=== PATIENT | female | born 1960 | race Caucasian/White ===

== ENCOUNTER 2019-10-16 04:34 | Outpatient (CLI) | payer OTHER, SELFPAY ==
[2019-10-16 07:39] LABS: Absolute Basophil Count 0.01 k/cumm (0.0-0.2); Absolute Eosinophil Count 0.14 k/cumm (0.0-0.7); Absolute Neutrophil Count 1.32 k/cumm (1.2-6.7); Basophils % 0.4; Eosinophils % 5.4; HCT 39.3 % (36.0-46.0); Lymphocytes % 31.1; Mean Corp. HGB Concentration 33.1 g/dL (32.0-36.0); Mean Corpuscular Hemoglobin 32.6 pg (27.0-33.0); Mean Corpuscular Volume 98.5 fL (80-95); Mean Platelet Volume 9.6 fL (8.0-11.0); Monocytes % 11.7; Neutrophils % 51.4; Platelet Count 169 x1000/uL (130-400); RBC 3.99 m/cumm (4.00-5.20); RBC Distribution Width 13.5 % (11.7-14.6); White Blood Cell Count 2.57 k/cumm (4.4-10.8)
[2019-10-16 08:48] LABS: ALT 26 U/L (14-59); AST 37 U/L (15-37); Alkaline Phosphatase 432 U/L (46-116); Anion Gap 8.2 mmol/L (3-11); BUN 13 mg/dL (7-18); Bilirubin, Total 0.5 mg/dL (0.2-1.0); CO2 28.8 mmol/L (21.0-32.0); CREATININE 0.84 mg/dL (0.55-1.02); Calcium 9.1 mg/dL (8.5-10.1); Chloride 102 mmol/L (98-107); Glucose 94 mg/dL (74-106); Potassium 4.4 mmol/L (3.5-5.1); Sodium 139 mmol/L (136-145); Total Protein 7.8 g/dL (6.4-8.2)
[2019-10-17 12:00] LABS: CEA 477.5 ng/mL (See Note)
== END 2019-10-16 04:54 ==
PROVIDERS: PCP Nurse Practitioner Adult Health; Visit Provider Internal Medicine Hematology & Oncology
DX: C20 Malignant neoplasm of rectum (principal)
CPT/HCPCS: 36415; 80053; 81003; 82378; 85025

== ENCOUNTER 2019-10-30 10:04 | Outpatient (REF) | payer OTHER, SELFPAY ==
[2019-10-30 19:53] LABS: ALT 28 U/L (14-59); AST 33 U/L (15-37); Alkaline Phosphatase 467 U/L (46-116); Anion Gap 8.2 mmol/L (3-11); BUN 7 mg/dL (7-18); Bilirubin, Total 0.5 mg/dL (0.2-1.0); CO2 29.8 mmol/L (21.0-32.0); CREATININE 0.71 mg/dL (0.55-1.02); Calcium 8.9 mg/dL (8.5-10.1); Chloride 102 mmol/L (98-107); Glucose 106 mg/dL (74-106); Potassium 4.8 mmol/L (3.5-5.1); Sodium 140 mmol/L (136-145); Total Protein 7.1 g/dL (6.4-8.2)
[2019-10-30 19:59] LABS: HCT 38.6 % (36.0-46.0); HGB 12.5 g/dL (12.0-15.5); Mean Corp. HGB Concentration 32.4 g/dL (32.0-36.0); Mean Corpuscular Hemoglobin 32.1 pg (27.0-33.0); Mean Corpuscular Volume 99.2 fL (80-95); Platelet Count 130 x1000/uL (130-400); RBC 3.89 m/cumm (4.00-5.20); RBC Distribution Width 14.4 % (11.7-14.6)
[2019-10-30 20:41] LABS: Bilirubin Negative (Negative); Blood Trace-lysed (Negative); Clarity Clear (Clear); Glucose Negative (Negative); Ketones Negative (Negative); Leukocyte Esterase Trace (Negative); Nitrite Negative (Negative); Urobilinogen 0.2 EU/dL (Up TO 0.2)
[2019-10-30 20:50] LABS: Bacteria Negative HPF (Negative); C & S Indicated? Yes; Casts Negative LPF (Negative); Crystals Negative HPF (Negative); Epithelial Cells Rare HPF (Negative); Mucus Negative (Negative); Other Cells Negative (Negative); RBC 0-2 HPF (0-2); WBC Negative HPF (0-5)
[2019-10-31 10:37] LABS: Absolute Basophil Count 0.03 k/cumm (0.0-0.2); Absolute Eosinophil Count 0.08 k/cumm (0.0-0.7); Absolute Lymphocyte Count 0.75 k/cumm (1.2-3.4); Absolute Monocyte Count 0.39 k/cumm (0.11-0.7); Absolute Neutrophil Count 1.35 k/cumm (1.2-6.7); Atypical Lymphocytes % 2
[2019-10-31 10:38] LABS: Diff Comment Manual Differential; RBC Morphology Normal
[2019-11-01 20:26] LABS: CEA 276.1 ng/mL (See Note)
== END 2019-10-30 10:24 ==
LOC: NCHCN 10:04
PROVIDERS: PCP Nurse Practitioner Adult Health; Visit Provider Family Medicine
DX: C20 Malignant neoplasm of rectum (principal); R82.998 Other abnormal findings in urine
CPT/HCPCS: 80053; 85027; 81003; 81015; 82378; 85007; 87086

== ENCOUNTER 2019-11-27 14:36 | Emergency (ER) | payer MEDICAID, OTHER, SELFPAY ==
[2019-11-27 14:49] VITALS: BP 117/75; PULSE 68; RESP 16; TEMP 36.4; O2SAT 99
[2019-11-27 15:02] VITALS: RESP 16
--- NOTE | 2019-11-27 15:15 | ED.GENADUL_ITS ---
Discharge Plan Disposition Patient Disposition: HOME Condition: Stable Discharge Details Chief Complaint: GenMedical Clinical Impression: Metastatic cancer to bone Primary Care Provider: Alisha Nur ED Provider: Lauri Lin Home Meds and New Rx's Prescriptions: Continued eszopiclone [Lunesta] 2 MG tablet 2 mg PO HS Qty: 90 RF: 1 oxycodone 10 mg Tablet 10 mg PO PRNRF: 0 oxycodone [OxyContin] 20 mg Tablet,Oral Only,Ext.Rel.12 Hr 20 mg PO .QHS RF: 0 dexamethasone 2 mg Tablet 1 mg PO BID RF: 0 Discharge Instructions Additional Instructions: Please follow-up with Dr. Mckeon on Tuesday as planned. As per our discussion, I have placed a referral for hospice consultation. Return if you develop weakness of the legs, numbness of the legs, incontinence of urine, worsening pain, or any other acute concerns. May continue your previously prescribed oxycodone and OxyContin. You may also take Tylenol 650 mg twice a day as needed. Please remove the Lidoderm patch in 12 hours time. Additional Lidoderm patches are available at the local pharmacy [id number]. Medical Decision Making 58-year-old female with recurrence and metastases of rectal cancer for which he is undergoing chemotherapy. She was referred by Dr. Mckeon of the cancer center 4 days of progressive low back pain that radiates to both hips. She is known to have an L1 metastatic lesion. Most recent imaging was MRI in October. She arrives with unremarkable vital signs, normal motor and sensory function of the legs. Concern for progressive disease particularly of the axial spine. The patient had IV access established, was given parenteral analgesia as well as topical analgesia with a Lidoderm patch. Laboratories reveal a white count of 12, hematocrit 37, platelets 171. Sodium 136, potassium 4.2, chloride 102, bicarb 25, BUN 24, creatinine 0.8. CT scan revealed innumerable pulmonary metastases. There is a metastatic focus on the left side of the L1 vertebral body extending into the left pedicle. Lesion measures 1.8 x 1.4 cm. There are innumerable low-attenuation lesions within the liver. There is a metastatic focus within the left adrenal grand. The images were uploaded to the [facility] servers by radiology. Following a single dose of hydromorphone and the application of a Lidoderm patch, the patient's pain significantly improved. She does not have motor or sensory dysfunction. Given the location of the L1 focus in the patient's description and radiation of the pain to the hips, I do feel this is the causative etiology. I discussed the findings with on-call oncology at [facility], Dr Duvall, who stated she would pass the information on to Dr. Mckeon, who the patient is scheduled to see on Tuesday in clinic. We discussed referral to neurosurgery. Patient states to me she would like to defer & declined this. She states she would like a hospice consult which I will arrange. She understands to seek immediate help should she have the development of the leg weakness, numbness, changes to urine continence. She will continue her previously prescribed analgesics. She is ambulatory and improved at this time. Cc: Dr. Mckeon, [facility] Mode of arrival: ambulatory . Date/Time Provider Initiated Documentation: 11/27/19 14:38 . Limitations to Documentation: no limitations . Information obtained by: patient . History of Present Illness 58 year old F presents to the emergency department with the chief complaint of Low back pain, metastatic cancer, described as moderate, Quality is described as dull and constant, and is localized to the back. Patient extremity. Patient started experiencing this day(s) and it has been constant. Movement improves symptom(s), Rest worsens symptoms . Patient notes other (No incontinence); denies weakness. Patient did receive the following treatments prior to arrival, other (Oxycodone, OxyContin at night) Related Data Home Medications Medication Instructions Recorded Confirmed eszopiclone [Lunesta] 2 mg PO HS #90 tab 03/28/14 11/27/19 dexamethasone 1 mg PO BID 11/27/19 11/27/19 oxycodone 10 mg PO PRN 11/27/19 oxycodone [OxyContin] 20 mg PO .QHS 11/27/19 11/27/19 Allergies Allergy/AdvReac Type Severity Reaction Status Date / Time No Known Allergies Allergy Unverified 11/27/19 14:53 General Stated Complaint: GenMedical NORY: 3 Review of Systems Narrative: Currently undergoing chemotherapy. No fever or known sick contacts. No incontinence. Complains of flatulence today. 6 systems reviewed and otherwise negative [facility] Medical History Anxiety disorder CTS (carpal tunnel syndrome) Hyperlipidemia Hypothyroid Insomnia Tobacco dependence Social History Smoking/Tobacco Use Status: Former Tobacco Use Alcohol Intake: never Substance use type: does not use Exam Narrative Exam Narrative: GEN: awake, alert, oriented 3. Pleasant, well groomed, interactive. HEAD: Normocephalic, atraumatic ENT: Mucous membranes moist, oropharynx unremarkable, External ear exam unremarkable EYES: PERRL, EOMI NECK: Full ROM, no RASHMI, no menigismus CHEST/RESP: Nontender, clear to auscultation bilateral, no wheeze/rhonchi/rales CARDIOVASCULAR: RRR, no murmur, rub alec. 2+ Rad pulse bilateral ABDOMEN: Soft, nontender, no mass. +Bowel sounds Back: Tender in the lumbar spine to palpation without step-off or deformity. EXT: Full ROM, no edema, no rash. Motor is 5 out of 5, sensation intact throughout including saddle distribution. Neuro: Grossly normal neurologic exam, conversant, interactive. Psych: Speech fluent, thoughts congruent, affect normal Course Vital Signs Vital signs: Vital Signs Temperature 36.4 C L 11/27/19 14:49 Pulse 68 11/27/19 14:49 Respiratory Rate 16 11/27/19 14:49 Blood Pressure 117/75 11/27/19 14:49 Pulse Oximetry 99 11/27/19 14:49 Temperature 36.4 C L 11/27/19 14:49 Temperature Source Skin 11/27/19 14:49 Pulse 68 11/27/19 14:49 Respiratory Rate 16 11/27/19 15:02 Respiratory Effort Non-Labored 11/27/19 15:02 Respiratory Depth Normal 11/27/19 15:02 Respiratory Pattern Normal 11/27/19 15:02 Blood Pressure 117/75 11/27/19 14:49 Blood Pressure Position Sitting 11/27/19 14:49 Pulse Oximetry 99 11/27/19 14:49 Oxygen Delivery Method Room Air 11/27/19 14:49 Oxygen Flow Rate 0 11/27/19 14:49 Pain Level 10 11/27/19 14:49
--- NOTE | 2019-11-27 15:15 | DI.CT_ITS ---
EXAM: CT CHEST/ABD/PEL W CLINICAL HISTORY: Metastatic cancer, L1 lesion, low back pain COMPARISON: CT CT CHEST ABDOMEN PELVIS W CONTRAST (GENERIC) from 11/09/2019 FINDINGS: CT examination of the chest, abdomen, and pelvis was performed utilizing biphasic hepatic imaging fol lowing intravenous infusion of 100 cc of Omnipaque 350. Examination is compared with most recent rohith or CT from [facility] of November 08. Note is again made of numerous intrapulmonary metastases bilaterally, largest in the right lower lobe measuring about 14 millimeters in greatest diameter, findings are grossly unchanged from prior study . No new mass or consolidation. No pleural effusion or pneumothorax. Mild pretracheal and left AP window adenopathy, grossly unchanged. No evidence of pulmonary embolic disease. No significant abnormality of the thoracic aorta or major branches. Right Port-A-Cath in position, tip of which lies in the SVC. No bony lesion of the thorax identified. Innumerable hepatic metastatic lesions again noted, grossly unchanged from prior study. Spleen is un remarkable. Left adrenal metastatic lesion again noted, this measures about 4 cm in diameter as comp ared to 3 cm on prior study, question necrosis of the lesion. Small nodular lesion right adrenal als o slightly more prominent than prior study. Incidental left renal cyst noted. Otherwise kidneys are unremarkable. No urinary tract calcificatio n or obstruction. No focal bowel pathology. Abdominal aorta and major branches appear intact. Prior rectal surgery noted, reported history of rectal carcinoma. Left upper quadrant nodule, presumed peritoneal metastasis, unchanged at about 18 millimeters. Right iliacus muscle lesion, grossly unchanged. Left L1 vertebral body/pedicle lesion, unchanged. IMPRESSION: Widespread metastatic disease as described above involving lungs, liver, peritoneum, adrenals, right iliacus muscle, L1 vertebral body/pedicle. The findings are unchanged except for increased size of l eft adrenal metastasis, increasing in size from about 3 cm to 4 cm over a two to three-week period. This may represent necrosis. Rapid interval growth is the alternative explanation.
[2019-11-27 15:36] LABS: Abs Immature Grans 0.09 k/cumm (0.0-0.09); Absolute Basophil Count 0.01 k/cumm (0.0-0.2); Absolute Eosinophil Count 0.06 k/cumm (0.0-0.7); Absolute Lymphocyte Count 1.08 k/cumm (1.2-3.4); Absolute Monocyte Count 0.58 k/cumm (0.11-0.7); Absolute Neutrophil Count 10.73 k/cumm (1.2-6.7); Basophils % 0.1; Eosinophils % 0.5; HCT 37.1 % (36.0-46.0); HGB 12.1 g/dL (12.0-15.5); Immature Grans % 0.7 %; Lymphocytes % 8.6; Mean Corp. HGB Concentration 32.6 g/dL (32.0-36.0); Mean Corpuscular Hemoglobin 32.9 pg (27.0-33.0); Mean Corpuscular Volume 100.8 fL (80-95); Mean Platelet Volume 10.3 fL (8.0-11.0); Monocytes % 4.6; Neutrophils % 85.5; Platelet Count 171 x1000/uL (130-400); RBC 3.68 m/cumm (4.00-5.20); RBC Distribution Width 16.4 % (11.7-14.6); White Blood Cell Count 12.55 k/cumm (4.4-10.8)
[2019-11-27 15:51] LABS: ALT 40 U/L (14-59); AST 51 U/L (15-37); Albumin 2.9 g/dL (3.4-5.0); Alkaline Phosphatase 377 U/L (46-116); Anion Gap 8.9 mmol/L (3-11); BUN 24 mg/dL (7-18); Bilirubin, Total 0.3 mg/dL (0.2-1.0); CO2 25.1 mmol/L (21.0-32.0); CREATININE 0.88 mg/dL (0.55-1.02); Calcium 8.9 mg/dL (8.5-10.1); Chloride 102 mmol/L (98-107); Glucose 120 mg/dL (74-106); Potassium 4.2 mmol/L (3.5-5.1); Sodium 136 mmol/L (136-145); Total Protein 7.4 g/dL (6.4-8.2)
[2019-11-27] MEDS: Omnipaque 350 MG/ML 100 ML BTL IV (16:04)
[2019-11-27] MEDS: HYDROmorphone 2 MG/ML VIAL 1 MG IVP (16:19)
[2019-11-27 16:25] VITALS: BP 131/63; PULSE 63; RESP 18; TEMP 36.7; O2SAT 98
--- NOTE | 2019-11-27 17:01 | DI.VRAD_ITS ---
PROCEDURE INFORMATION: Exam: CT Chest With Contrast Exam date and time: 11/27/2019 3:20 PM Age: 58 years old Clinical indication: Other: L1 pain; Patient HX: Metastatic cancer, l1 lesion low back pain. Primary cancer was rectal cancer 4 years ago. Patients last chemo round was 3 weeks ago. ; Additional info: Entered er for back pain. Multiphasic staging exam was obtained per radiologist. Arterial chest and liver, and venous liver and pelvis was obtained. TECHNIQUE: Imaging protocol: Computed tomography of the chest with intravenous contrast. Radiation optimization: All CT scans at this facility use at least one of these dose optimization techniques: automated exposure control; mA and/or kV adjustment per patient size (includes targeted exams where dose is matched to clinical indication); or iterative reconstruction. COMPARISON: No relevant prior studies available. FINDINGS: Tubes, catheters and devices: There is a Port-A-Cath catheter on the right side with its tip in the SVC. Thyroid: The thyroid gland is within normal limits. Lungs: The tracheobronchial tree is patent bilaterally. There are multiple nodules throughout the lungs ranging in size from less than a cm to the largest of which is within the right lower lobe measuring up to 1.7 cm. These nodules are highly suspicious for metastatic disease. There are blebs within the apices. Pleural space: Unremarkable. No pneumothorax. No pleural effusion. Heart: The heart and pericardium are within normal limits. Aorta: There are slight arteriosclerotic changes of the aorta. Lymph nodes: There is right paratracheal adenopathy. There is AP window adenopathy. Bones/joints: There is a metastatic focus within the left side of the L1 vertebral body. This extends into the left pedicle. This causes impingement on the thecal sac. The lesion measures 1.8 x 1.4 cm. The There are degenerative changes of both shoulders. There are degenerative changes of the thoracic spine. Soft tissues: The patient is status post bilateral breast implants. IMPRESSION: Innumerable pulmonary metastases as above. Bony metastases involving the L1 vertebral body as above. Adenopathy as above. Further evaluation could be obtained with a PET-CT scan for restaging purposes. PROCEDURE INFORMATION: Exam: CT Abdomen And Pelvis With Contrast; Liver Exam date and time: 11/27/2019 3:20 PM Age: 58 years old Clinical indication: Other: L1 pain; Patient HX: Metastatic cancer, l1 lesion low back pain. Primary cancer was rectal cancer 4 years ago. Patients last chemo round was 3 weeks ago. ; Additional info: Entered er for back pain. Multiphasic staging exam was obtained per radiologist. Arterial chest and liver, and venous liver and pelvis was obtained. TECHNIQUE: Imaging protocol: Computed tomography of the abdomen and pelvis with intravenous contrast. Exam focused on the liver. Radiation optimization: All CT scans at this facility use at least one of these dose optimization techniques: automated exposure control; mA and/or kV adjustment per patient size (includes targeted exams where dose is matched to clinical indication); or iterative reconstruction. Contrast material: OMNIPAQUE 350; Contrast volume: 100 ml; Contrast route: IV; COMPARISON: No relevant prior studies available. FINDINGS: Liver: There are innumerable low-attenuation lesions within the liver which ranges in size from less than a cm to the largest of which is within the left lobe of the liver lateral segment measuring up to 5 cm. These lesions are highly suspicious for metastatic disease. Gallbladder and bile ducts: The gallbladder appears within normal limits. Pancreas: The pancreas is unremarkable. Spleen: The spleen is within normal limits. There is a small splenule. There are calcifications within the spleen which are suspicious for old granulomatous disease. Adrenals: There is a large metastatic focus within the left adrenal gland measuring 4.1 by 2.9 cm. The right adrenal gland is unremarkable. Kidneys and ureters: The right kidney is unremarkable. There is a small simple cyst within the midpole of the left kidney measuring up to 1.4 cm. Stomach and bowel: The patient is status post surgery at the level of the rectum. The anastomosis appears intact. There are feces within the colon which are suspicious for constipation. Intraperitoneal space: Unremarkable. No free air. No significant fluid collection. Lymph nodes: Unremarkable. No enlarged lymph nodes. Vasculature: There are arteriosclerotic changes of the aorta. Bladder: The urinary bladder is unremarkable. Reproductive: There is an IUD within the uterus. Bones/joints: There are degenerative changes of the lumbar spine. There is a metastatic focus within the right iliacus muscle at the level of the iliac crest. This measures approximately 2.7 by 2.7 cm. There is degenerative disc disease at L5-S1. There are degenerative changes of both hips. There is a lytic lesion within the left iliac bone measuring to 1.8 cm. Soft tissues: Unremarkable. IMPRESSION: 1. Metastatic disease as described above. Further evaluation could be obtained with a PET-CT scan for restaging purposes if clinically warranted. 2. Status post rectal surgery. The anastomosis is intact. 3. Osseous findings as above. Dictated and Authenticated by: Nathan Colmenares MD. Ordering:MAJOR Carreon MD
[2019-11-27 17:47] VITALS: BP 114/61; PULSE 55; RESP 16; TEMP 36.6; O2SAT 100
--- NOTE | 2019-11-27 18:13 | NUR.NOTE ---
Nursing Note: Referral copied and in care management inbox
--- NOTE | 2019-11-28 15:40 | PDOC.ERCMPRO ---
- If Service Date Differs Date of service: 11/28/19 Time of Service: 15:40 Care Management Progress Note At the request of ED provider, CM coordinates a referral to hospice.
== END 2019-11-27 18:14 | disposition home or self-care (01) ==
PROVIDERS: Emergency Provider Emergency Medicine; PCP Family Medicine
DX: C79.51 Secondary malignant neoplasm of bone (principal); M54.5 Low back pain; M25.551 Pain in right hip; M25.552 Pain in left hip; C20 Malignant neoplasm of rectum; Z79.899 Other long term (current) drug therapy
CPT/HCPCS: 36415; 74177; 80053; 96374; 99285; 71260; 83735; 85025; 99284; J3490

== ENCOUNTER 2019-12-14 02:53 | Outpatient (RCR) | payer MEDICAID, SELFPAY ==
[2019-11-30] MEDS: Normal Saline Flush 10 ML SYR 30 ML IVP (09:26)
[2019-11-30 09:27] LABS: Abs Immature Grans 0.08 k/cumm (0.0-0.09); Absolute Monocyte Count 0.29 k/cumm (0.11-0.7); Absolute Neutrophil Count 14.35 k/cumm (1.2-6.7); Basophils % 0.1; HCT 38.3 % (36.0-46.0); HGB 12.5 g/dL (12.0-15.5); Immature Grans % 0.5 %; Lymphocytes % 3.3; Mean Corp. HGB Concentration 32.6 g/dL (32.0-36.0); Mean Corpuscular Hemoglobin 33.1 pg (27.0-33.0); Mean Corpuscular Volume 101.3 fL (80-95); Mean Platelet Volume 10.7 fL (8.0-11.0); Monocytes % 1.9; Neutrophils % 94.2; Platelet Count 247 x1000/uL (130-400); RBC 3.78 m/cumm (4.00-5.20); RBC Distribution Width 17.1 % (11.7-14.6); White Blood Cell Count 15.23 k/cumm (4.4-10.8)
[2019-11-30 09:28] LABS: Absolute Basophil Count 0.02 k/cumm (0.0-0.2)
[2019-11-30 09:44] LABS: ALT 44 U/L (14-59); AST 37 U/L (15-37); Alkaline Phosphatase 340 U/L (46-116); Anion Gap 7.6 mmol/L (3-11); BUN 20 mg/dL (7-18); Bilirubin, Total 0.4 mg/dL (0.2-1.0); CO2 27.4 mmol/L (21.0-32.0); CREATININE 0.71 mg/dL (0.55-1.02); Calcium 8.9 mg/dL (8.5-10.1); Chloride 100 mmol/L (98-107); Glucose 163 mg/dL (74-106); Potassium 4.1 mmol/L (3.5-5.1); Sodium 135 mmol/L (136-145); Total Protein 7.6 g/dL (6.4-8.2)
[2019-12-03 12:20] LABS: CEA 168.8 ng/mL (See Note)
== END 2019-12-16 23:59 | disposition home or self-care (01) ==
LOC: INF 02:53
PROVIDERS: PCP Family Medicine; Visit Provider Internal Medicine Hematology & Oncology
DX: C20 Malignant neoplasm of rectum (principal); Z45.2 Encounter for adjustment and management of vascular access device
CPT/HCPCS: 36591; 80053; 82378; 85025

== ENCOUNTER 2019-12-28 03:35 | Outpatient (CLI) | payer OTHER, MEDICAID, SELFPAY ==
--- NOTE | 2019-12-28 | DI.CT_ITS ---
EXAM: CT CHEST/ABD/PEL W CLINICAL HISTORY: COLON CA METASTASIZED TO LIVER,C18.9,C78.7,BASELINE CT PRIOR TO CHEMO TECHNIQUE: Imaging Protocol: Axial computed tomography images with coronal and sagittal reformatted images were created and reviewed CONTRAST MATERIAL: Intravenous: Omnipaque 350 Contrast volume:100 mL Oral: Yes COMPARISON: CT CT CHEST/ABD/PEL W from 11/27/2019 FINDINGS: CHEST: Tracheobronchial tree: Patent where visualized. Mediastinum and Yessi: No dominant adenopathy or fluid collection. Pulmonary parenchyma: No consolidation. Multiple pulmonary metastases. There has been interval incr ease in size of the largest metastasis in the right lower lobe. It now measures 2 cm compared with 1 .6 cm. A nodule in the lateral aspect of the right lower lobe currently measures 0.9 cm compared wit h 0.6 cm on the prior examination. No architectural distortion. Pleura: No effusion or pneumothorax. Heart: The heart is not dilated. Mild coronary artery calcification. No significant pericardial effu francisco. Aorta: Atherosclerosis. Pulmonary artery: No evidence of pulmonary embolus. Lymph nodes: Within normal limits. Bones:The right scapular lesion has enlarged compared to the prior examination. Soft tissues: Bilateral breast implants. Tubes, Catheters, and Lines: There is a right-sided Kcjvlm-[id number]-Dcgo catheter. Tip is in good position at the caval atrial junction. ABDOMEN: Liver: There are innumerable hepatic metastases. The largest are in the left lobe. The more superio r lesion measures 6.1 x 4.1 cm. This compares to 6.2 x 4 cm. More inferior lesion in the left lobe measures 6.1 x 4.8 cm. This compares with 6.1 x 4.7 cm. Portal, Superior Mesenteric, and Splenic Veins: Unremarkable. Gallbladder and Biliary Tract: No cholelithiasis. Unchanged dilatation of the common bile duct. Sma ll amount of pericholecystic fluid. Pancreas: Normal density, no abnormal calcifications or inflammatory process. Spleen: Calcified granuloma. Adrenals: Stable right adrenal nodule. Stable left adrenal nodule. Kidneys: Normal size, contour and axis. No radiodense stones or obstructive uropathy. Stable left darion al cyst. Rounded area of decreased enhancement in the inferior anterior left kidney. It does not ap pear to meet the criteria for a simple cyst. Abdominal Aorta: Abdominal portion non-dilated. Atherosclerosis. Bowel: No obstruction or bowel wall thickening. Appendix is unremarkable. Postsurgical changes of a d ouble-barrel colostomy are noted. Peritoneal Cavity: No ascites, collection or mesenteric inflammatory response. Lymph Nodes: Within normal limits. Bones: The L1 lytic lesion is unchanged. Soft Tissues: The right iliacus muscle mass has shown interval increase in size. It currently measur es 3.0 x 3.1 cm. This compares with 2.7 x 2.7 cm. There are several intramuscular masses cyst again seen predominantly in the gluteal muscles. PELVIS: Bladder: Symmetric distention, no gross wall thickening. Reproductive Organs: Unremarkable as visualized. IUD is in place. Lymph Nodes: Within normal limits. Bones: Please see above. IMPRESSION: 1. Stable hepatic metastasis. Stable L1 lytic lesion. 2. Increase in size of right iliacus muscle mass. 3. Area of decreased enhancement in the inferior left kidney. Does not meet the criteria for simple cyst. Renal mass cannot be excluded. 4. Interval increase in size of pulmonary metastases. 5. Interval increase in size of right scapular lesion. RADIATION DOSE DELIVERED: 1,499.76mGy.cm Total DLP DATA REPOSITORY: All CT scans at this facility are submitted to the National Radiology Data Registry (NRDR) Dose Index Registry (DIR) with the [employer] ([employer]). RADIATION OPTIMIZATION: All CT scans at this facility use at least one of these dose optimization te chniques: automated exposure control; mA and/or kV adjustment per patient size (includes targeted exa ms where dose is matched to clinical indication); or iterative reconstruction.
[2019-12-28] MEDS: Breeza Beverage 473 ML BTL PO ×2 (07:25→07:26)
[2019-12-28] MEDS: Omnipaque 350 MG/ML 50 ML BTL PO (07:25)
[2019-12-28] MEDS: Omnipaque 350 MG/ML 100 ML BTL IJ (08:54)
[2019-12-28] MEDS: Normal Saline - Diluent 50 ML VIAL IV (08:55)
== END 2019-12-28 03:55 ==
PROVIDERS: PCP Family Medicine; Visit Provider Nurse Practitioner Acute Care
DX: C18.9 Malignant neoplasm of colon, unspecified (principal); C78.7 Secondary malignant neoplasm of liver and intrahepatic bile duct; Z12.89 Encounter for screening for malignant neoplasm of other sites; C78.01 Secondary malignant neoplasm of right lung; C79.51 Secondary malignant neoplasm of bone
CPT/HCPCS: 74177; 80053; 71260; 82378; 85025; J3490; Q9967

== ENCOUNTER 2020-01-11 04:18 | Outpatient (RCR) | payer MEDICAID, SELFPAY ==
[2019-12-28] MEDS: Heparin 500 UNITS/5 ML SYRINGE IV (07:24)
[2019-12-28] MEDS: Normal Saline Flush 10 ML SYR IVP (07:24)
[2019-12-28 07:42] LABS: Abs Immature Grans 0.15 k/cumm (0.0-0.09); Absolute Basophil Count 0.01 k/cumm (0.0-0.2); Absolute Eosinophil Count 0.41 k/cumm (0.0-0.7); Absolute Neutrophil Count 7.29 k/cumm (1.2-6.7); Basophils % 0.1; Eosinophils % 4.4; HCT 35.3 % (36.0-46.0); HGB 11.3 g/dL (12.0-15.5); Immature Grans % 1.6 %; Lymphocytes % 9.6; Mean Corpuscular Hemoglobin 33.5 pg (27.0-33.0); Mean Corpuscular Volume 104.7 fL (80-95); Mean Platelet Volume 10.5 fL (8.0-11.0); Monocytes % 6.4; Neutrophils % 77.9; Platelet Count 179 x1000/uL (130-400); RBC 3.37 m/cumm (4.00-5.20); RBC Distribution Width 16.2 % (11.7-14.6); White Blood Cell Count 9.36 k/cumm (4.4-10.8)
[2019-12-28 08:40] LABS: ALT 73 U/L (14-59); AST 66 U/L (15-37); Albumin 2.7 g/dL (3.4-5.0); Alkaline Phosphatase 423 U/L (46-116); Anion Gap 8.8 mmol/L (3-11); BUN 20 mg/dL (7-18); Bilirubin, Total 0.3 mg/dL (0.2-1.0); CO2 28.2 mmol/L (21.0-32.0); CREATININE 0.82 mg/dL (0.55-1.02); Calcium 8.9 mg/dL (8.5-10.1); Chloride 99 mmol/L (98-107); Glucose 91 mg/dL (74-106); Potassium 4.4 mmol/L (3.5-5.1); Sodium 136 mmol/L (136-145)
[2019-12-31 11:11] LABS: CEA 384.5 ng/mL (See Note)
[2020-01-11 08:33] LABS: Abs Immature Grans 0.02 k/cumm (0.0-0.09); Absolute Eosinophil Count 0.09 k/cumm (0.0-0.7); Absolute Neutrophil Count 7.22 k/cumm (1.2-6.7); HCT 34.4 % (36.0-46.0); HGB 10.7 g/dL (12.0-15.5); Immature Grans % 0.2 %; Lymphocytes % 8.1; Mean Corp. HGB Concentration 31.1 g/dL (32.0-36.0); Mean Corpuscular Hemoglobin 33.5 pg (27.0-33.0); Mean Corpuscular Volume 107.8 fL (80-95); Mean Platelet Volume 10.2 fL (8.0-11.0); Neutrophils % 83.7; Platelet Count 234 x1000/uL (130-400); RBC 3.19 m/cumm (4.00-5.20); RBC Distribution Width 15.7 % (11.7-14.6); White Blood Cell Count 8.63 k/cumm (4.4-10.8)
[2020-01-11] MEDS: Normal Saline Flush 10 ML SYR IVP (08:45)
[2020-01-11] MEDS: Heparin 500 UNITS/5 ML SYRINGE IV (08:45)
[2020-01-11 08:48] LABS: ALT 76 U/L (14-59); AST 51 U/L (15-37); Albumin 2.6 g/dL (3.4-5.0); Alkaline Phosphatase 505 U/L (46-116); Anion Gap 9.2 mmol/L (3-11); BUN 14 mg/dL (7-18); Bilirubin, Total 0.3 mg/dL (0.2-1.0); CO2 26.8 mmol/L (21.0-32.0); CREATININE 0.86 mg/dL (0.55-1.02); Calcium 8.7 mg/dL (8.5-10.1); Chloride 104 mmol/L (98-107); Glucose 172 mg/dL (74-106); Potassium 3.9 mmol/L (3.5-5.1); Sodium 140 mmol/L (136-145); Total Protein 6.6 g/dL (6.4-8.2)
[2020-01-11 08:51] LABS: Diff Comment RBC Morph Reviewed
[2020-01-11 08:52] LABS: Hypochromasia 1+; Macrocytosis 2+; Polychromasia Present
[2020-01-14 11:11] LABS: CEA 472.8 ng/mL (See Note)
== END 2020-01-15 23:59 | disposition home or self-care (01) ==
LOC: INF 04:18
PROVIDERS: Nurse Practitioner Acute Care; PCP Family Medicine; Visit Provider Internal Medicine Hematology & Oncology
DX: C20 Malignant neoplasm of rectum (principal); Z45.2 Encounter for adjustment and management of vascular access device
CPT/HCPCS: 36591; 80053; 96523; 82378; 85025

== ENCOUNTER 2020-01-26 06:16 | Emergency (ER) | payer MEDICAID, SELFPAY ==
[2020-01-26 06:24] VITALS: BP 157/92; PULSE 82; RESP 18; TEMP 37.4; O2SAT 98
[2020-01-26] MEDS: fentaNYL 100 MCG/2 ML VIAL 50 MCG IVP ×2 (06:35→07:00)
--- NOTE | 2020-01-26 06:36 | ED.GENADUL_ITS ---
Discharge Plan Disposition Patient Disposition: HOME Condition: Good Discharge Details Chief Complaint: Orthopedic Clinical Impression: Closed left humeral fracture, Pathological fracture Primary Care Provider: Alisha Nur ED Provider: Mario Cummings Meds and New Rx's Prescriptions: Continued fentanyl 50 mcg/hr patch 72 hour 1 patch TD Q72H MDD 100 mcg Qty: 10 RF: 0 ibuprofen 200 mg tablet 600 mg PO Q8H PRN (Reason: pain) RF: 0 sertraline 25 mg tablet 25 mg PO DAILY Qty: 30 RF: 1 trazodone 50 mg tablet 50 mg PO QHS PRN (Reason: sleep) Qty: 30 RF: 0 acetaminophen [Tylenol] 325 mg tablet 325 mg PO Q6H PRN (Reason: pain) RF: 0 fentanyl 12 mcg/hr patch 72 hour 1 patch TD Q72H MDD 62 mcg Qty: 10 RF: 0 oxycodone 10 mg Tablet 10 mg PO QID RF: 0 Discharge Instructions Instructions: Splint Care (ED) Additional Instructions: Please leave splint on and wear your cuff and collar at all times. You will follow-up with orthopedics this week. They will reach out to you likely on Tuesday. Use your pain medication as needed. Return to ED for any significant numbness or weakness or significantly worsening pain involving the left arm. Referrals: Elmer Bueno MD [ [facility] STAFF PHYSICIAN] - Medical Decision Making IV was established and patient received fentanyl for pain control. She was then sent to x-ray which confirms a midshaft humerus fracture that appears to be pathological in nature. Case discussed with orthopedics, Dr. Bueno. Recommend splinting with sling and follow-up with him this week. Patient given IV Toradol and IV fentanyl for splinting. Reverse sugar tong isolating the humerus of the left upper extremity done. Patient tolerated quite well. Placed in cuff and collar and now is quite comfortable. Remains neurovascularly intact distally. Will be discharged to follow-up with orthopedics this week. Medical Records Medical records reviewed: Yes I reviewed the patient's medical records. HPI General Mode of arrival: ambulatory . Date/Time Provider Initiated Documentation: 01/26/20 06:27 . Limitations to Documentation: no limitations . Information obtained by: patient, RN notes reviewed and old records reviewed . HPI Narrative: Patient presents to ED with left upper extremity pain that occurred when she was trying to pull herself up off the floor with her left arm use as leverage with her nightstand. She had been trying to reach a bag under her bed that her kitten had been playing with. She felt and heard a snap as she was trying to get up. She is being treated for metastatic adenocarcinoma. She is followed by Dr. Mckeon of oncology and is receiving chemotherapy. She denies numbness or weakness distally. States pain is between her shoulder and elbow on the left. Related Data Home Medications Medication Instructions Recorded Confirmed oxycodone 10 mg PO QID 11/27/19 01/09/20 fentanyl 50 mcg/hr transdermal 1 patch TD Q72H #10 each MDD 100 01/02/20 01/26/20 patch mcg acetaminophen 325 mg tablet 325 mg PO Q6H PRN tab 01/09/20 01/26/20 fentanyl 12 mcg/hr transdermal 1 patch TD Q72H #10 each MDD 62 mcg 01/09/20 01/26/20 patch ibuprofen 200 mg tablet 600 mg PO Q8H PRN tab 01/09/20 01/26/20 sertraline 25 mg tablet 25 mg PO DAILY #30 tab-cap NS 01/09/20 01/26/20 trazodone 50 mg tablet 50 mg PO QHS PRN #30 tab 01/09/20 01/26/20 Previous Rx's Medication Instructions Recorded fentanyl 50 mcg/hr transdermal 1 patch TD Q72H #10 each MDD 100 01/02/20 patch mcg fentanyl 12 mcg/hr transdermal 1 patch TD Q72H #10 each MDD 62 mcg 01/09/20 patch sertraline 25 mg tablet 25 mg PO DAILY #30 tab-cap NS 01/09/20 trazodone 50 mg tablet 50 mg PO QHS PRN #30 tab 01/09/20 Allergies Allergy/AdvReac Type Severity Reaction Status Date / Time No Known Allergies Allergy Unverified 11/27/19 14:53 General Stated Complaint: Orthopedic NORY: 4 Review of Systems Narrative: As documented in HPI otherwise negative as below. 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 (Acute) Pain from bone metastases (Acute) Palliative care patient (Acute) POLST (Physician Orders for Life-Sustaining Treatment) (Chronic) done 01/09/20 Situational depression (Acute) restarting her SSRI and sleep aid Tobacco dependence Uncontrolled pain (Resolved) Surgical History H/O ileostomy (Resolved) now with colostomy Social History Smoking/Tobacco Use Status: Former Tobacco Use Tobacco: How many years used: 30 Alcohol Intake: never Substance use type: does not use Adopted: Yes Caregiver/Support person: Yes Household members: none Housing: apartment Number of Children: 3 Communication Needs: Corrective Lenses Education Level: high school Do you need help understanding health information?: Rarely current occupation: disabled; was biomedical instrument technician for [employer] Pets and animals: Yes What is your relationship status?: How often do you talk on the phone with friends or family?: three or more times per week How often do you get together with friends or relatives?: three or more times per week Panel score (0-1 are the most socially isolated patients): 1 What type of physical activity do you participate in: walking and irregular exercise Duration: < 15 minutes/day Frequency: 3-4 times per week Special mian needs: No Seatbelt use: always Do you feel safe at home: Yes Do you feel safe in your relationship?: Yes Additional Social history: Daughter Jess is her rock and her DPOA. Is legally but , whom she describes as narcissist, lives in [place]. He has said he would take care of her but she does not want him to. Son is in [place]. Both daughters are local. Superior recurrence. Wasn't having a lot of sx. Dr Nur ordered CT scan that showed widespread metastases. Had initial cancer treatment in [place], where she was living. Now sees Dr Mckeon, oncology and Dr Nur, PCP. Exam Narrative Exam Narrative: Vitals: Afebrile. Elevated blood pressure otherwise normal vitals and normal room air pulse ox. Const: WDWN female in NAD. HEENT: NC/AT. Normal facial exam. Eyes: Normal conjunctiva and sclera. Neck: Supple. Trachea midline. Lungs: Normal respiratory effort. Cor: Good radial pulses. Neuro: A+O x 3. Normal speech, mentation, gait. Cranial nerves II - XII grossly intact. No gross motor or sensory deficit. Ext: No C/C. BLE pedal edema. No obvious deformity to left upper extremity. Decreased range of motion due to pain in the proximal left upper extremity. Tenderness to palpation mid humeral area. Neurovascularly intact distally with good radial pulse, and strength, sensation. Skin: Warm and dry without wounds. Course Vital Signs Vital signs: Vital Signs Temperature 99.3 F 01/26/20 06:24 Pulse 82 01/26/20 06:24 Respiratory Rate 18 01/26/20 06:24 Blood Pressure 157/92 H 01/26/20 06:24 Pulse Oximetry 98 01/26/20 06:24 Temperature 99.3 F 01/26/20 06:24 Temperature Source Temporal Artery Scan 01/26/20 06:24 Pulse 82 01/26/20 06:24 Respiratory Rate 18 01/26/20 06:24 Respiratory Effort 01/26/20 06:28 Blood Pressure 157/92 H 01/26/20 06:24 Blood Pressure Position Sitting 01/26/20 06:24 Pulse Oximetry 98 01/26/20 06:24 Pain Level 10 01/26/20 06:24 Procedures Orthopedic Splinting/Casting Injury #1: Side: left Upper Extremity Injury Location: upper arm Upper Extremity Immobilizer: sugartong splint (reverse sugartong for humerus)
--- NOTE | 2020-01-26 07:06 | DI.RAD_ITS ---
EXAM: XR HUMERUS LT CLINICAL HISTORY: metastatic cancer; trivial trauma; severe pain TECHNIQUE: COMPARISON: No exams were available for comparison FINDINGS: Two views were obtained. Patient reportedly has history metastatic neoplastic disease. There is mid shaft fracture of the humerus with moderate displacement. There is permeative lesion of the humerus at this site, this is does appear to be a pathological fracture through a metastatic lesion. IMPRESSION:
[2020-01-26] MEDS: Ketorolac 30 MG/ML VIAL (07:21)
[2020-01-26] MEDS: fentaNYL 100 MCG/2 ML VIAL (07:25)
[2020-01-26] MEDS: Normal Saline Flush 10 ML SYR IVP (07:25)
--- NOTE | 2020-01-26 07:57 | DI.VRAD_ITS ---
Addendum created by Justin Arndt MD on 01/26/2020 8:00:27 AM EDT THIS REPORT CONTAINS FINDINGS THAT MAY BE CRITICAL TO PATIENT CARE. The findings were verbally communicated via telephone conference with JUDE MIRZA at 8:00 AM EDT on 01/26/2020. The findings were acknowledged and understood. Initial report created on 01/26/2020 7:56:59 AM EDT PROCEDURE INFORMATION: Exam: XR Left Humerus Exam date and time: 01/26/2020 6:54 AM Age: 59 years old Clinical indication: Injury or trauma; Fall; Initial encounter; Blunt trauma (contusions or hematomas; Arm, upper; Left; Injury date: 01/26/20; Patient HX: Known bone cancer TECHNIQUE: Imaging protocol: XR Left humerus Views: 2 or more views. COMPARISON: No relevant prior studies available. FINDINGS: Bones/joints: Displaced spiral fracture of the left mid humerus with approximately 1/2 shaft with displacement and anterior apex angulation of approximately 20 degrees. There is likely an ill-defined lytic lesion centered about the fracture site with evidence of inner cortex erosion/cortical thinning. Soft tissues: There is soft tissue swelling about the fracture site. IMPRESSION: Displaced spiral fracture of the left mid humerus as described in detail above with likely underlying ill-defined osteolytic lesion. Recommend clinical correlation. Dictated and Authenticated by: Justin Arndt MD. Ordering:STUART Martin MD
[2020-01-26 08:06] VITALS: PULSE 78; RESP 16; O2SAT 99
== END 2020-01-26 07:53 | disposition home or self-care (01) ==
PROVIDERS: Emergency Provider Emergency Medicine; PCP Family Medicine
DX: M84.522A Pathological fracture in neoplastic disease, left humerus, initial encounter for fracture (principal); X50.9XXA Other and unspecified overexertion or strenuous movements or postures, initial encounter; C20 Malignant neoplasm of rectum; C79.51 Secondary malignant neoplasm of bone; Z79.899 Other long term (current) drug therapy
CPT/HCPCS: 24500; 96374; 96375; 96376; 73060; J1885; J3010

== ENCOUNTER 2020-01-28 11:25 | Emergency (ER) | payer MEDICAID, SELFPAY ==
[2020-01-28] VITALS (30 sets, daily range): BP systolic 121–141; BP diastolic 72–93; PULSE 78–101; RESP 14–23; TEMP 36.5–37.2; O2SAT 89–97
--- NOTE | 2020-01-28 11:58 | W.ED.GENAD ---
Discharge Plan Disposition Patient Disposition: HOME Condition: Stable Discharge Details Chief Complaint: GenMedical Clinical Impression: Cancer related pain, Pain from bone metastases, Palliative care patient, Peripheral edema, Liver metastasis Primary Care Provider: Alisha Nur ED Provider: Maricruz Rizvi Home Meds and New Rx's Prescriptions: Continued ibuprofen 200 mg tablet 600 mg PO Q8H PRN (Reason: pain) RF: 0 sertraline 25 mg tablet 25 mg PO DAILY Qty: 30 RF: 1 trazodone 50 mg tablet 50 mg PO QHS PRN (Reason: sleep) Qty: 30 RF: 0 acetaminophen [Tylenol] 325 mg tablet 325 mg PO Q6H PRN (Reason: pain) RF: 0 Discontinued oxycodone 10 mg Tablet 10 mg PO QID RF: 0 No Action fentanyl 75 mcg/hr patch 72 hour 1 patch TD Q72H MDD 150 mcg Qty: 10 RF: 0 hydromorphone [Dilaudid] 2 mg tablet 2 mg PO Q6H MDD 10 mg PRN (Reason: pain) Qty: 30 RF: 0 Discharge Instructions Instructions: Back Pain (ED), Leg Pain (ED) Additional Instructions: Stop taking your oxycodone. Start taking the Dilaudid as needed and directed for pain. Call your oncologist, your primary care doctor as well as your palliative care doctor Dr. Bustamante to discuss your treatment plan going forward. Call the orthopedist tomorrow to schedule follow-up appointment for reevaluation for your left arm fracture. Return immediately to the emergency department if you develop any worsening or concerning symptoms. 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 Patient appears very drowsy but arousable and able to answer questions. Her abdomen is soft but tender in the upper quadrants. She has bilateral paraspinal lumbar tenderness but no evidence of infection or trauma. She has pitting edema in her lower extremities but neurovascular intact. She is moving all extremities. Differential diagnosis includes edema secondary to abdominal neoplasm with metastasis, acute versus chronic liver disease, gastroenteritis, UTI, electrolyte abnormality, pain with bony mets, etc. Will place an IV, bolus IV fluids, screening labs, urinalysis, CT abdomen and pelvis, bilateral lower extremity ultrasounds as well as a dose of Dilaudid and Zofran and reassess. 1500 --labs and imaging reviewed. Normal white blood cell count. Hemoglobin 11.5. INR 1.2. Magnesium 1.6. Minimal elevation in transaminases. Troponin negative. Lipase within normal limits. Urinalysis negative for infection. CT abdomen and pelvis notes overall worsening of metastasis in liver, adrenal glands and lungs. No other acute abdominal findings. Bilateral lower extremity Doppler ultrasounds negative for DVT. Patient reassessed -she complained of return of pain and given additional dose of Dilaudid. Attempted to reach palliative care Dr. Bustamante for additional recommendations regarding patient's overall worsening of metastasis and treatment plan going forward but she was not available. Discussed with patient that we could consider admission for pain control but see states she would rather go home with stronger pain medication if possible. Will send home with a prescription for Dilaudid p.o. She was given a dose of Dilaudid p.o. here with additional improvement in pain prior to discharge. Case and results discussed with patient's daughter Jess who stated they want to have her stay at her friend Nithya's house so that she is not alone. They plan on making arrangements for her for help at home. Discussed with patient disposition decision made weighing the risks and benefits of hospitalization versus outpatient treatment, the risk for further decompensation, and the patient's wishes. Usual and customary return precautions given prior to discharge. Medical Records Medical records reviewed: Yes I reviewed the patient's medical records. Imaging Data Radiologic Study: Radiologist's impression: CT ABDOMEN PELVIS W CLINICAL HISTORY: upper abd pain, nausea, h/o colostomy TECHNIQUE: Imaging Protocol: Axial computed tomography images with coronal and sagittal reformatted images were created and reviewed CONTRAST MATERIAL: Intravenous: Omnipaque 350 Contrast volume:100 mL Oral: No COMPARISON: CT CT CHEST/ABD/PEL W from 12/28/2019 FINDINGS: ABDOMEN: Lung Bases: There has been interval increase in size of the right basilar pulmonary masses. Bilateral basilar infiltrates are seen which may represent atelectasis or pneumonia. The patient has bilateral breast implants. Liver: There are innumerable masses within the liver. There has been interval increase in size of several of the lesions. There is a lesion in the posterior segment of the right lobe measuring 5.2 x 3.4 cm. This compares with 4.4 x 2.6 cm. Portal, Superior Mesenteric, and Splenic Veins: Unremarkable. Gallbladder and Biliary Tract: No cholelithiasis. Stable size of the common bile duct. Pancreas: Normal density, no abnormal calcifications or inflammatory process. Spleen: Stable calcifications. Adrenals: Enlarging adrenal masses. The left adrenal gland measures 5.0 cm compared with 4.4 cm. The right adrenal gland now measures 2.5 cm compared with 0.9 cm. Kidneys: Normal size, contour and axis. No radiodense stones or obstructive uropathy. The hypodense area in the inferior aspect of the left kidney appears stable. It does not meet the criteria for simple cyst. Abdominal Aorta: Abdominal portion non-dilated. Atherosclerosis. Bowel: No obstruction or bowel wall thickening. Appendix is unremarkable. Note is again made of a left abdominal double-barrel colostomy. Peritoneal Cavity: Trace amount of perihepatic and perisplenic ascites. Lymph Nodes: Within normal limits. Bones: Stable L1 lytic lesion. Soft Tissues: There is continued increase in size of the right iliac muscle mass measuring 3.3 x 3.8 cm compared with 3.1 x 3 cm. There is also a 2.6 x 2.1 cm soft tissue mass in the presacral soft tissues. The right gluteal mass adjacent to the right iliac bone posteriorly is again seen. There are now destructive changes in the adjacent iliac bone. PELVIS: Bladder: Symmetric distention, no gross wall thickening. Reproductive Organs: There is an intrauterine device in place. Lymph Nodes: Within normal limits. Bones: Please see the above discussion IMPRESSION: Interval progression of the visualized metastatic disease. There is worsening involvement of the liver lung bases and adrenal glands as described above. These findings were discussed with the emergency department on the date of the examination. US EXTREMITY VENOUS BI CLINICAL HISTORY: r/o dvt, BILAT LEG PAIN. TECHNIQUE: Bilateral lower extremity venous ultrasound performed using grayscale, color-flow, and spectral Doppler analysis. COMPARISON: No exams were available for comparison FINDINGS: The bilateral common femoral, femoral and popliteal veins demonstrate normal compressibility, augmentation, and color Doppler. The posterior tibial veins are patent. The saphenofemoral junctions are unremarkable. There is no evidence of a Roblero's cyst. The soft tissues are unremarkable. IMPRESSION: Right: Negative for DVT Left: Negative for DVT Lab Data Lab results reviewed: Yes I reviewed the patient's lab results. Labs: Laboratory Tests Range/Units 01/28/20 01/28/20 01/28/20 11:45 11:45 11:45 WBC (4.4-10.8) k/cumm RBC (4.00-5.20) m/cumm Hgb (12.0-15.5) g/dL Hct (36.0-46.0) % MCV (80-95) fL MCH (27.0-33.0) pg MCHC (32.0-36.0) g/dL RDW (11.7-14.6) % Plt Count (130-400) x1000/uL MPV (8.0-11.0) fL Immature Gran % % Neutrophils % Lymphocytes % Monocytes % Eosinophils % Basophils % Absolute Neutrophils (1.2-6.7) k/cumm Absolute Lymphocytes (1.2-3.4) k/cumm Absolute Monocytes (0.11-0.7) k/cumm Absolute Eosinophils (0.0-0.7) k/cumm Absolute Basophils (0.0-0.2) k/cumm PT (9.3-11.0) sec 12.2 H INR (0.9-1.1) 1.2 H APTT (21.0-31.4) sec 26.3 Sodium (136-145) mmol/L 134 L Potassium (3.5-5.1) mmol/L 3.5 Chloride (98-107) mmol/L 97 L Carbon Dioxide (21.0-32.0) mmol/L 25.3 Anion Gap (3-11) mmol/L 11.7 H BUN (7-18) mg/dL 9 Creatinine (0.55-1.02) mg/dL 0.57 Estimated GFR/1.73 m2 (mL/min/1.73m2) >= 60.00 Glucose (74-106) mg/dL 97 Calcium (8.5-10.1) mg/dL 8.7 Magnesium (1.8-2.4) mg/dL 1.6 L Total Bilirubin (0.2-1.0) mg/dL 1.2 H AST (15-37) U/L 132 H ALT (14-59) U/L 85 H Alkaline Phosphatase (46-116) U/L 524 H Troponin I (<0.06) ng/mL < 0.05 Total Protein (6.4-8.2) g/dL 6.3 L Albumin (3.4-5.0) g/dL 2.3 L Lipase (73-393) U/L 121 Urine Color (Yellow) Urine Clarity (Clear) Urine pH (5-8) Ur Specific Rosanky (1.005-1.025) Urine Protein (Negative) mg/dL Urine Ketones (Negative) mg/dL Urine Blood (Negative) Urine Nitrite (Negative) Urine Bilirubin (Negative) Urine Urobilinogen (Up TO 0.2) EU/dL Ur Leukocyte Esterase (Negative) Urine RBC (0-2) HPF Urine WBC (0-5) HPF Ur Epithelial Cells (Negative) HPF Urine Crystals Urine Bacteria Urine Mucus Ur Culture Indicated? Urine Glucose (Negative) mg/dL Range/Units 01/28/20 01/28/20 11:45 14:16 WBC (4.4-10.8) k/cumm 4.41 RBC (4.00-5.20) m/cumm 3.51 L Hgb (12.0-15.5) g/dL 11.5 L Hct (36.0-46.0) % 36.2 MCV (80-95) fL 103.1 H MCH (27.0-33.0) pg 32.8 MCHC (32.0-36.0) g/dL 31.8 L RDW (11.7-14.6) % 15.8 H Plt Count (130-400) x1000/uL 136 MPV (8.0-11.0) fL 10.7 Immature Gran % % 0.9 Neutrophils % 74.8 Lymphocytes % 10.9 Monocytes % 11.1 Eosinophils % 2.3 Basophils % 0.0 Absolute Neutrophils (1.2-6.7) k/cumm 3.30 Absolute Lymphocytes (1.2-3.4) k/cumm 0.48 L Absolute Monocytes (0.11-0.7) k/cumm 0.49 Absolute Eosinophils (0.0-0.7) k/cumm 0.10 Absolute Basophils (0.0-0.2) k/cumm 0.00 PT (9.3-11.0) sec INR (0.9-1.1) APTT (21.0-31.4) sec Sodium (136-145) mmol/L Potassium (3.5-5.1) mmol/L Chloride (98-107) mmol/L Carbon Dioxide (21.0-32.0) mmol/L Anion Gap (3-11) mmol/L BUN (7-18) mg/dL Creatinine (0.55-1.02) mg/dL Estimated GFR/1.73 m2 (mL/min/1.73m2) Glucose (74-106) mg/dL Calcium (8.5-10.1) mg/dL Magnesium (1.8-2.4) mg/dL Total Bilirubin (0.2-1.0) mg/dL AST (15-37) U/L ALT (14-59) U/L Alkaline Phosphatase (46-116) U/L Troponin I (<0.06) ng/mL Total Protein (6.4-8.2) g/dL Albumin (3.4-5.0) g/dL Lipase (73-393) U/L Urine Color (Yellow) Yellow Urine Clarity (Clear) Clear Urine pH (5-8) 7.0 Ur Specific Rosanky (1.005-1.025) 1.015 Urine Protein (Negative) mg/dL Negative Urine Ketones (Negative) mg/dL Negative Urine Blood (Negative) Trace-intact H Urine Nitrite (Negative) Negative Urine Bilirubin (Negative) Negative Urine Urobilinogen (Up TO 0.2) EU/dL 0.2 Ur Leukocyte Esterase (Negative) Negative Urine RBC (0-2) HPF 0-2 Urine WBC (0-5) HPF 0-2 Ur Epithelial Cells (Negative) HPF Few Urine Crystals Not Applicable Urine Bacteria Not Applicable Urine Mucus Not Applicable Ur Culture Indicated? No Urine Glucose (Negative) mg/dL Negative ECG Data Attestation: I personally reviewed and interpreted this ECG (s) as follows: Interpretation: Rate of 91, sinus, left anterior fascicular block. Less than [address] depression V4 through V6. No old EKG to compare. [place] 169. QRS 77. QTc 426. HPI General Mode of arrival: ambulatory. Date/Time Provider Initiated Documentation: 01/28/20 11:25. Limitations to Documentation: no limitations. Information obtained by: patient. HPI Narrative: Patient is a 59-year-old female with a history of stage IV rectal adenocarcinoma currently on chemotherapy with metastasis to peritoneum, lung, spine with history of ileostomy who presents for lower back pain, bilateral leg pain for several weeks, nausea, vomiting x3, and upper abdominal pain since this morning. Patient denies any fever, chest pain, shortness of breath, cough, urinary symptoms. Patient was seen here 2 days ago for left shoulder pain and diagnosed with left humerus pathologic fracture. She has been wearing a sling and a splint to her left upper arm. She also admits to vomiting 3 times a day which is mainly clear bile. She also admits to upper abdominal pain this morning but is now improved. Related Data Home Medications Medication Instructions Recorded Confirmed acetaminophen 325 mg tablet 325 mg PO Q6H PRN tab 01/09/20 01/29/20 ibuprofen 200 mg tablet 600 mg PO Q8H PRN tab 01/09/20 01/29/20 sertraline 25 mg tablet 25 mg PO DAILY #30 tab-cap NS 01/09/20 01/29/20 trazodone 50 mg tablet 50 mg PO QHS PRN #30 tab 01/09/20 01/29/20 fentanyl 75 mcg/hr transdermal 1 patch TD Q72H #10 each MDD 150 01/30/20 01/30/20 patch mcg hydromorphone 2 mg tablet 2 mg PO Q6H PRN #30 tab MDD 10 mg 01/30/20 01/30/20 Previous Rx's Medication Instructions Recorded sertraline 25 mg tablet 25 mg PO DAILY #30 tab-cap NS 01/09/20 trazodone 50 mg tablet 50 mg PO QHS PRN #30 tab 01/09/20 fentanyl 75 mcg/hr transdermal 1 patch TD Q72H #10 each MDD 150 01/30/20 patch mcg hydromorphone 2 mg tablet 2 mg PO Q6H PRN #30 tab MDD 10 mg 01/30/20 Allergies Allergy/AdvReac Type Severity Reaction Status Date / Time No Known Allergies Allergy Verified 01/29/20 10:58 General Stated Complaint: GenMedical NORY: 3 Review of Systems All systems reviewed & are unremarkable except as noted in HPI and below Constitutional Constitutional: Reports as per HPI, Denies chills and Denies fever(s) Eyes Eyes: Denies blurry vision ENT Ears, Nose, Mouth, and Throat: Denies dizziness, Denies sore throat and Denies throat swelling Cardiovascular Cardiovascular: Denies chest pain and Denies dyspnea Respiratory Respiratory: Denies cough and Denies dyspnea Gastrointestinal Gastrointestinal: Reports abdominal pain, Denies diarrhea, Reports nausea and Denies vomiting Genitourinary Genitourinary: Denies hematuria and Denies dysuria Musculoskeletal Musculoskeletal: Reports back pain, Denies numbness and Reports other (Bilateral leg pain and swelling) Integumentary/Breasts Skin/Breast: Denies lesions and Denies rash Neurologic Neurologic: Denies dizziness, Denies localized weakness and Denies numbness Allergic/Immunologic Allergic/Immunologic: Denies throat swelling COUNTS INCLUDE 234 BEDS AT THE [facility] Medical History (Updated 01/30/20 @ 11:07 by Ira Bustamante MD) Adenocarcinoma of rectum, stage 4 (Acute) Anxiety disorder Cancer related pain (Acute) Colostomy in place (Chronic) CTS (carpal tunnel syndrome) DNI (do not intubate) (Acute) DNR (do not resuscitate) (Acute) Encounter for hospice care discussion (Acute) Goals of care, counseling/discussion (Acute) Hyperlipidemia Hypothyroid Insomnia Lung metastases (Acute) Metastasis to adrenal gland (Acute) Metastasis to peritoneum (Acute) Pain from bone metastases (Acute) Palliative care patient (Acute) POLST (Physician Orders for Life-Sustaining Treatment) (Chronic) done 01/09/20 Situational depression (Acute) restarting her SSRI and sleep aid Tobacco dependence Uncontrolled pain (Resolved) Surgical History H/O ileostomy (Resolved) now with colostomy Social History Smoking/Tobacco Use Status: Former Tobacco Use Tobacco: How many years used: 30 Alcohol Intake: never Substance use type: does not use Adopted: Yes Caregiver/Support person: Yes Household members: none Housing: apartment Number of Children: 3 Communication Needs: Corrective Lenses Education Level: high school Do you need help understanding health information?: Rarely current occupation: disabled; was medical records clerk for [employer] Pets and animals: Yes Current gender identity: female What is your relationship status?: How often do you talk on the phone with friends or family?: three or more times per week How often do you get together with friends or relatives?: three or more times per week Panel score (0-1 are the most socially isolated patients): 1 What type of physical activity do you participate in: walking and irregular exercise Duration: < 15 minutes/day Frequency: 3-4 times per week Special mian needs: No Seatbelt use: always Do you feel safe at home: Yes Do you feel safe in your relationship?: Yes Additional Social history: Daughter Jess is her rock and her DPOA. Is legally but , whom she describes as narcissist, lives in [place]. He has said he would take care of her but she does not want him to. Son is in [place]. Both daughters are local. [place] recurrence. Wasn't having a lot of sx. Dr Nur ordered CT scan that showed widespread metastases. Had initial cancer treatment in [place], where she was living. Now sees Dr Mckeon, oncology and Dr Nur, PCP. Exam Const General: cooperative, healthy appearing and no acute distress HENMT Head: normal to inspection Ears: hearing grossly normal bilaterally and external ears normal Face and sinus: normal facial exam Mouth: mucous membranes dry Eyes General: appearance normal, both eyes and all related structures EOM: EOM intact bilaterally Neck Neck: normal visual inspection and No submandibular swelling Lymphatic: no lymphadenopathy noted Chest Chest: normal inspection of the chest and no tenderness Resp Effort & Inspection: normal respiratory effort and able to speak in complete sentences Auscultation: clear to auscultation bilaterally Cardio Rate: regular rate Rhythm: regular rhythm GI Inspection: normal to inspection and other (Colostomy bag in abdomen with brown stool present) Palpation: soft, not firm, not rigid and tender (Across upper abdomen, worse in epigastrium) Auscultation: hypoactive bowel sounds Back/Spine/Pelvis Thoracic/Lumbar Spine: thoracic and lumbar spine normal to inspection, surgical scar(s) present (Midline lumbar, linear, well-healed) and paraspinal tenderness (Bilateral lumbar) Pelvis: no pain with anterior-posterior compression Skin General skin exam: no rashes or lesions noted Neuro General: patient alert, patient awake and patient oriented x3 Cognition: normal cognition Speech: speech normal Motor: muscle tone normal throughout Sensory Exam: no sensory deficits noted Extrem General: normal to inspection, full ROM, capillary refill normal, no calf tenderness bilaterally and no edema Other: 1+ pitting bilateral lower extremity edema. 2+ pitting edema right foot. Psych Appearance: grossly normal Mental Status: mental status grossly normal Speech and Movement: speech and movement normal Affect: normal affect Course Vital Signs Vital signs: Vital Signs Temperature 97.7 F 01/28/20 11:30 Pulse 78 01/28/20 11:30 Respiratory Rate 22 01/28/20 11:30 Blood Pressure 121/72 01/28/20 11:30 Pulse Oximetry 97 01/28/20 11:30 Temperature 97.7 F 01/28/20 11:30 Pulse 78 01/28/20 11:30 Respiratory Rate 22 01/28/20 11:30 Respiratory Effort Non-Labored 01/28/20 11:35 Blood Pressure 121/72 01/28/20 11:30 Blood Pressure Position Sitting 01/28/20 11:30 Pulse Oximetry 97 01/28/20 11:30 Oxygen Delivery Method Room Air 01/28/20 11:30 Oxygen Flow Rate 0 01/28/20 11:30
--- NOTE | 2020-01-28 12:15 | DI.CT_ITS ---
EXAM: CT ABDOMEN PELVIS W CLINICAL HISTORY: upper abd pain, nausea, h/o colostomy TECHNIQUE: Imaging Protocol: Axial computed tomography images with coronal and sagittal reformatted images were created and reviewed CONTRAST MATERIAL: Intravenous: Omnipaque 350 Contrast volume:100 mL Oral: No COMPARISON: CT CT CHEST/ABD/PEL W from 12/28/2019 FINDINGS: ABDOMEN: Lung Bases: There has been interval increase in size of the right basilar pulmonary masses. Bilatera l basilar infiltrates are seen which may represent atelectasis or pneumonia. The patient has bilater al breast implants. Liver: There are innumerable masses within the liver. There has been interval increase in size of se veral of the lesions. There is a lesion in the posterior segment of the right lobe measuring 5.2 x 3 .4 cm. This compares with 4.4 x 2.6 cm. Portal, Superior Mesenteric, and Splenic Veins: Unremarkable. Gallbladder and Biliary Tract: No cholelithiasis. Stable size of the common bile duct. Pancreas: Normal density, no abnormal calcifications or inflammatory process. Spleen: Stable calcifications. Adrenals: Enlarging adrenal masses. The left adrenal gland measures 5.0 cm compared with 4.4 cm. Th e right adrenal gland now measures 2.5 cm compared with 0.9 cm. Kidneys: Normal size, contour and axis. No radiodense stones or obstructive uropathy. The hypodense a merly in the inferior aspect of the left kidney appears stable. It does not meet the criteria for simp le cyst. Abdominal Aorta: Abdominal portion non-dilated. Atherosclerosis. Bowel: No obstruction or bowel wall thickening. Appendix is unremarkable. Note is again made of a lef t abdominal double-barrel colostomy. Peritoneal Cavity: Trace amount of perihepatic and perisplenic ascites. Lymph Nodes: Within normal limits. Bones: Stable L1 lytic lesion. Soft Tissues: There is continued increase in size of the right iliac muscle mass measuring 3.3 x 3.8 cm compared with 3.1 x 3 cm. There is also a 2.6 x 2.1 cm soft tissue mass in the presacral soft tis sues. The right gluteal mass adjacent to the right iliac bone posteriorly is again seen. There are now destructive changes in the adjacent iliac bone. PELVIS: Bladder: Symmetric distention, no gross wall thickening. Reproductive Organs: There is an intrauterine device in place. Lymph Nodes: Within normal limits. Bones: Please see the above discussion IMPRESSION: Interval progression of the visualized metastatic disease. There is worsening involvement of the chidi er lung bases and adrenal glands as described above. These findings were discussed with the emergenc y department on the date of the examination. RADIATION DOSE DELIVERED: Total DLP DATA REPOSITORY: All CT scans at this facility are submitted to the National Radiology Data Registry (NRDR) Dose Index Registry (DIR) with the [employer] ([employer]). RADIATION OPTIMIZATION: All CT scans at this facility use at least one of these dose optimization te chniques: automated exposure control; mA and/or kV adjustment per patient size (includes targeted exa ms where dose is matched to clinical indication); or iterative reconstruction.
--- NOTE | 2020-01-28 12:20 | DI.US_ITS ---
EXAM: US EXTREMITY VENOUS BI CLINICAL HISTORY: r/o dvt, BILAT LEG PAIN. TECHNIQUE: Bilateral lower extremity venous ultrasound performed using grayscale, color-flow, and sp ectral Doppler analysis. COMPARISON: No exams were available for comparison FINDINGS: The bilateral common femoral, femoral and popliteal veins demonstrate normal compressibility, augment ation, and color Doppler. The posterior tibial veins are patent. The saphenofemoral junctions are unr emarkable. There is no evidence of a Roblero's cyst. The soft tissues are unremarkable. IMPRESSION: Right: Negative for DVT Left: Negative for DVT The findings were discussed with the emergency department on the date of the examination. DATA REPOSITORY:
[2020-01-28] MEDS: Normal Saline 500 ML IV (12:40)
[2020-01-28] MEDS: Ondansetron 4 MG/2 ML VIAL IVP (12:40)
[2020-01-28] MEDS: HYDROmorphone 2 MG/ML VIAL 1 MG IVP ×2 (12:40→13:45)
[2020-01-28 12:42] LABS: Abs Immature Grans 0.04 k/cumm (0.0-0.09); Absolute Lymphocyte Count 0.48 k/cumm (1.2-3.4); Absolute Monocyte Count 0.49 k/cumm (0.11-0.7); Eosinophils % 2.3; HCT 36.2 % (36.0-46.0); HGB 11.5 g/dL (12.0-15.5); Immature Grans % 0.9 %; Lymphocytes % 10.9; Mean Corp. HGB Concentration 31.8 g/dL (32.0-36.0); Mean Corpuscular Hemoglobin 32.8 pg (27.0-33.0); Mean Corpuscular Volume 103.1 fL (80-95); Mean Platelet Volume 10.7 fL (8.0-11.0); Monocytes % 11.1; Neutrophils % 74.8; Platelet Count 136 x1000/uL (130-400); RBC 3.51 m/cumm (4.00-5.20); RBC Distribution Width 15.8 % (11.7-14.6); White Blood Cell Count 4.41 k/cumm (4.4-10.8)
[2020-01-28 12:44] LABS: Lipase 121 U/L (73-393); Magnesium 1.6 mg/dL (1.8-2.4)
[2020-01-28 12:52] LABS: ALT 85 U/L (14-59); AST 132 U/L (15-37); Albumin 2.3 g/dL (3.4-5.0); Alkaline Phosphatase 524 U/L (46-116); Anion Gap 11.7 mmol/L (3-11); BUN 9 mg/dL (7-18); Bilirubin, Total 1.2 mg/dL (0.2-1.0); CO2 25.3 mmol/L (21.0-32.0); CREATININE 0.57 mg/dL (0.55-1.02); Calcium 8.7 mg/dL (8.5-10.1); Chloride 97 mmol/L (98-107); Glucose 97 mg/dL (74-106); INR 1.2 (0.9-1.1); PTT Activated 26.3 sec (21.0-31.4); Potassium 3.5 mmol/L (3.5-5.1); Prothrombin Time 12.2 sec (9.3-11.0); Sodium 134 mmol/L (136-145); Total Protein 6.3 g/dL (6.4-8.2); Troponin I < 0.05 ng/mL (<0.06)
--- NOTE | 2020-01-28 13:30 | RT.EKG_ITS ---
APPROVED REPORT Exam: Resting ECG Patient Location: E HR:91 bpm ECG Measurements Heart Rate 91 AXIS [place] 169 P 65 QRSd 77 QRS -51 QT 346 T 23 QTc 426 <Conclusion> Sinus rhythm...normal P axis, V-rate 60- 99 Left anterior fascicular block...axis(240,-40), init forces inf Low voltage, extremity leads...all extremity leads <0.5mV abnormal
[2020-01-28] MEDS: Omnipaque 350 MG/ML 100 ML BTL IV (13:38)
[2020-01-28] MEDS: Normal Saline Flush 10 ML SYR (13:45)
[2020-01-28 14:33] LABS: Bilirubin Negative (Negative); Blood Trace-intact (Negative); Clarity Clear (Clear); Glucose Negative (Negative); Ketones Negative (Negative); Leukocyte Esterase Negative (Negative); Nitrite Negative (Negative); Specific Gravity 1.015 (1.005-1.025); Urobilinogen 0.2 EU/dL (Up TO 0.2)
[2020-01-28 14:43] LABS: C & S Indicated? No; Epithelial Cells Few HPF (Negative); RBC 0-2 HPF (0-2); WBC 0-2 HPF (0-5)
--- NOTE | 2020-01-28 15:30 | RT.EKG_ITS ---
APPROVED REPORT Exam: Resting ECG Patient Location: E HR:93 bpm ECG Measurements Heart Rate 93 AXIS TX 158 P 54 QRSd 77 QRS -39 QT 342 T 16 QTc 426 <Conclusion> Sinus rhythm...normal P axis, V-rate 60- 99 Inferior infarct, old...Q >35mS, II III aVF No acute ST elevation or depression.
[2020-01-28] MEDS: Magnesium Oxide 400 MG TAB PO (15:47)
[2020-01-28] MEDS: HYDROmorphone 2 MG TAB PO (15:53)
== END 2020-01-28 16:25 | disposition home or self-care (01) ==
PROVIDERS: Emergency Provider Physician Assistant; PCP Family Medicine
DX: C78.7 Secondary malignant neoplasm of liver and intrahepatic bile duct (principal); G89.3 Neoplasm related pain (acute) (chronic); R60.0 Localized edema; M84.422D Pathological fracture, left humerus, subsequent encounter for fracture with routine healing
CPT/HCPCS: 80053; 83690; 93005; 96361; 96374; 96375; 96376; 99285; 74177; 81003; 81015; 83735; 84484; 85025; 85610; 85730; 93010; 93970; J2405; J3490

== ENCOUNTER 2020-02-04 15:41 | Outpatient (CLI) | payer MEDICAID, SELFPAY ==
--- NOTE | 2020-02-04 15:15 | DI.RAD_ITS ---
EXAM: XR HUMERUS RT CLINICAL HISTORY: f/u fracture. TECHNIQUE: 2D digital imaging was performed. COMPARISON: CR,XR XR HUMERUS LT from 01/26/2020 FINDINGS: BONES: No acute fracture is present. No bony destructive lesion is seen. Visualized portion of elbow and shoulder joints are unremarkable. Incidental note is made of a supracondylar process. SOFT TISSUE: Normal. IMPRESSION: No acute fracture or dislocation. DATA REPOSITORY: RADIATION DOSE DELIVERED:
== END 2020-02-04 16:01 ==
PROVIDERS: PCP Family Medicine; Visit Provider Student in an Organized Health Care Education/Training Program
DX: C79.51 Secondary malignant neoplasm of bone (principal); G89.3 Neoplasm related pain (acute) (chronic)
CPT/HCPCS: 73060

== ENCOUNTER 2020-02-05 07:53 | Outpatient (CLI) | payer MEDICAID, SELFPAY ==
[2020-02-07 08:19] LABS: COVID-19 RT-PCR Result NEGATIVE (Negative)
== END 2020-02-05 08:13 ==
PROVIDERS: Student in an Organized Health Care Education/Training Program; PCP Family Medicine; Visit Provider Student in an Organized Health Care Education/Training Program
DX: M84.421A Pathological fracture, right humerus, initial encounter for fracture (principal); Z11.59 Encounter for screening for other viral diseases; Z01.818 Encounter for other preprocedural examination
CPT/HCPCS: U0003

== ENCOUNTER 2020-02-08 06:05 | Day surgery (SDC) | payer MEDICAID, SELFPAY ==
[2020-02-08] VITALS (9 sets, daily range): BP systolic 80–120; BP diastolic 52–80; PULSE 70–79; RESP 14–24; TEMP 36.1–36.6; O2SAT 95–100
[2020-02-08] MEDS: Lactated Ringers 1,000 ML 100 ML IV (06:53)
--- NOTE | 2020-02-08 07:00 | DI.RAD_ITS ---
EXAM: XR HUMERUS LT CLINICAL HISTORY: losed left humeral fracture TECHNIQUE: 2D and realtime digital imaging was performed. CONTRAST MATERIAL: Refer to procedure report. COMPARISON: CR,XR XR HUMERUS LT from 01/26/2020 CR XR HUMERUS RT from 02/04/2020 FINDINGS: Fluoroscopy was provided for Dr. Bueno during the performance of a open reduction and internal fixati on of the left humeral fracture. Please refer to the procedure report for complete details. Fluoro time: 226.4 seconds IMPRESSION: RADIATION DOSE DELIVERED:
[2020-02-08] MEDS: ceFAZolin 2 GM/50 ML BAG IVPB (08:26)
--- NOTE | 2020-02-08 12:18 | PDOC.DSDIS_ITS ---
Discharge Plan Disposition Patient Disposition: HOME Condition: Stable Discharge Details Reason For Visit: PATHOLOGIC HUMERAL SHAFT FX Attending Provider: Elmer Bueno Primary Care Provider: Alisha Nur Home Meds and New Rx's Prescriptions: New naproxen 250 mg tablet 250 - 500 mg PO BID PRN (Reason: Moderate pain or swelling) Qty: 60 RF: 0 aspirin 81 mg tablet,delayed release (DR/EC) 81 mg PO DAILY 14 Days Qty: 14 RF: 0 Continued fentanyl 75 mcg/hr patch 72 hour 1 patch TD Q72H MDD 150 mcg Qty: 10 RF: 0 hydromorphone [Dilaudid] 2 mg tablet 2 mg PO Q6H MDD 10 mg PRN (Reason: pain) Qty: 30 RF: 0 ibuprofen 200 mg tablet 600 mg PO Q8H PRN (Reason: pain) RF: 0 sertraline 25 mg tablet 25 mg PO DAILY Qty: 30 RF: 1 trazodone 50 mg tablet 50 mg PO QHS PRN (Reason: sleep) Qty: 30 RF: 0 acetaminophen [Tylenol] 325 mg tablet 325 mg PO Q6H PRN (Reason: pain) RF: 0 furosemide [Lasix] 20 mg Tablet 20 mg PO BID RF: 0 Discharge Instructions Additional Instructions: Surgery: Left pathologic humeral shaft fracture intramedullary nailing Activity: Weightbearing as tolerated. Gradually advance both passive and active range of motion of the shoulder and elbow. A physical therapy prescription will be provided separately in the office at follow-up if needed. Prescriptions: Aspirin 81 mg take 1 daily to prevent a blood clot for 2 weeks Naproxen 250 mg take 1-2 every 12 hours with a meal as needed for moderate pain or ibuprofen 600 mg as previously using Previously prescribed oxycodone 10 mg take 1 every 6 hours as needed for severe pain You may use [id number] Tylenol (acetaminophen) as needed for mild pain. These pain medications may be taken all at once or in different combinations as needed. Also, recommend Colace (docusate) as a stool softener as surgery and pain medicine cause constipation. Dressings: Leave Jakob wrap on for 2 to 3 days to minimize swelling. May loosen and re-wrap as needed for comfort. Leave dressings underneath in place for 5 days. May then remove and leave open to air or cover incisions with Band-Aids. May shower after 7 days. Follow-up: 10-[address] Bueno and shortly after with Dr. Mckeon. Let us know right away if you develop any redness, drainage, fevers, chest pain, or trouble breathing. Do not drink alcohol or drive for at least 24 hours after anesthesia. Please call the office during business hours with any questions or concerns. Referrals: Elmer Bueno MD [ [facility] STAFF PHYSICIAN] - Discharge Orders Discharge Orders: Discharge Order (Routine); Ordered 02/08/20 Ordered By: Elmer Bueno DS: Diagnosis Discharge Diagnosis (1) Metastatic cancer to bone: Status: Chronic (2) Fracture, pathologic, humerus: Status: Acute
--- NOTE | 2020-02-08 12:49 | ROE_ITS ---
Date of service: 02/08/20 Time of Service: 07:38 Operative Note Operative Note DATE OF PROCEDURE: 02/08/20 PRE-OP DIAGNOSIS: Left pathologic humeral shaft fracture POST-OP DIAGNOSIS: same PROCEDURE: Left humeral shaft fracture intramedullary nailing, CPT # 05953 SURGEON: Elmer Bueno TON CONTAINER FILLER: Beth Telles ANESTHESIA: GETA, regional and local ESTIMATED BLOOD LOSS: 15 COMPLICATIONS: None Patient was transported to: PACU Patient's condition: stable Implants: Synthes titanium multi-lock humeral nail 7 mm, left, 270 mm 4.5 mm titanium multi lock screws 40 mm and 30 mm 4.0 mm titanium locking screws 32 mm and 24 mm 4.0 mm titanium angular stable locking screw 26 mm with resorbable sleeve Indications: Please see complete medical record for details. Findings: Displaced pathologic distal humerus shaft fracture Procedure Description: In the operating room, general anesthesia was induced. The patient was positioned supine on the beachchair table in a semirecumbent position. C-arm fluoroscopy was brought in to confirm appropriate positioning of patient table and all equipment in order to obtain the necessary AP, true AP, and scapular Y images. All bony prominences were well-padded. Preoperative antibiotics were administered. The left shoulder and arm were prepped and draped in the usual sterile fashion. The correct patient, procedure, and side of the procedure were all verified prior to incision. C-arm fluoroscopy was used to localize the appropriate start point for straight humeral nail medial greater tuberosity with a straight trajectory than the proximal humeral canal. Orthogonal x-ray was used to confirm appropriate position from anterior to posterior. The incision was extended along the guidewire a couple centimeters proximally distally in line with the anterior lateral fibers of the deltoid. The rotator cuff was blindly incised opening up approximately 1 cm space in line with its fibers with a 10 blade. Muscle and rotator cuff fibers were spread apart. The opening awl was used over the guidewire using fluoroscopic guidance to open the proximal humerus. The finger was inserted down the proximal humerus to the level of the fracture site. Spider arm positioning was used as well as manual gentle traction lateral directed pressure and internal rotation to most appropriately reduce the fracture under x-ray guidance. The ball-tipped guidewire was then placed down the finger and directed past the tumor fracture site into the distal humerus to the level of the olecranon fossa. Correct reduction and placement of the thyroid was confirmed orthogonal x-rays. The 0.5 mm meter was inserted over the guidewire and used to open the proximal humerus, humeral shaft, passed by hand past the fracture site under fluoroscopic guidance, and used to open the distal humerus stopping a couple centimeters above the olecranon fossa. The depth gauge was used to select an appropriately length nail. The nail was assembled to the jig and locking guides checked prior to insertion over the guidewire. The nail was carefully passed through the fracture area into the distal humerus while rotating the nails of the distal locking and proximal locking screws were be in the correct orientations. The guidewire was removed. Correct fracture reduction and nail depth proximally distally was confirmed fluoroscopically. Through the locking jig the a and B multi-lock screws were predrilled and a unicortical fashion taking care not to penetrate the far cortex through stab incisions that were opened carefully spread down to bone. Appropriately length multi-lock screws were secured. A third bicortical locking screw was predrilled and placed in the next distal position. Care was taken to avoid the regions of the axillary nerve and biceps tendon. Reduction of the fracture site was confi rmed again. Attention was then turned toward freehand perfect cherokee technique for locking the distal nail. Care was taken to make mini open incisions lateral to the biceps tendon and medial to the radial nerve and spread opening subcutaneous and deep tissues down to bone prior to placing retractors down to bone. Under fluoroscopic guidance the 2 parallel distal locking screws were predrilled bicortically and the drills were left in place. The more proximal drill was removed and appropriately measured bicortical distal locking screw was placed. For added stability the distal locking screw was overdrilled using the ASLS reamer and then appropriately length ASLS screw and sleeve was locked into the distal nail and bicortically placed. Final AP, lateral, and oblique fluoroscopy confirmed appropriate fracture reduction and placement of hardware. All wounds were copiously irrigated especially the nail entry and reaming site. The mini split in the rotator cuff was closed using 0 Vicryl in a [id number] fashion. Deep and subcutaneous tissue over the anterolateral deltoid was closed using 2-0 Monocryl in a buried fashion. Skin was closed in 3-0 Monocryl. All locking screw stab incisions were closed using 2-0 Monocryl and 3-0 Monocryl. Mastisol and Steri-Strips were applied over the incisions followed by Xeroform dry 4 x 4 gauze and Tegaderm dressings. The entire extremities placed gently and compressive Jakob wrap. The patient awoke from anesthesia without complication and was transferred to the recovery room in a stable condition.
== END 2020-02-08 13:47 | disposition home or self-care (01) ==
PROVIDERS: PCP Family Medicine; Visit Provider Student in an Organized Health Care Education/Training Program
PROC: (CPT 24420; principal; 2020-02-08 07:30)
DX: M84.522A Pathological fracture in neoplastic disease, left humerus, initial encounter for fracture (principal); C79.51 Secondary malignant neoplasm of bone; Z93.3 Colostomy status; C20 Malignant neoplasm of rectum
CPT/HCPCS: 24516; C1713; 76942; L3670; 73060; J0690; J1100; J1885; J2001; J2250; J2405; J2704

== ENCOUNTER 2020-02-14 02:01 | Outpatient (RCR) | payer MEDICAID, SELFPAY ==
[2020-01-25] MEDS: Normal Saline Flush 10 ML SYR IVP (09:19)
[2020-01-25] MEDS: Heparin 500 UNITS/5 ML SYRINGE (09:19)
[2020-01-25 09:22] LABS: Abs Immature Grans 0.05 k/cumm (0.0-0.09); Absolute Basophil Count 0.01 k/cumm (0.0-0.2); Absolute Eosinophil Count 0.13 k/cumm (0.0-0.7); Absolute Lymphocyte Count 0.55 k/cumm (1.2-3.4); Absolute Monocyte Count 0.39 k/cumm (0.11-0.7); Absolute Neutrophil Count 5.64 k/cumm (1.2-6.7); Basophils % 0.1; Eosinophils % 1.9; HCT 34.2 % (36.0-46.0); HGB 10.8 g/dL (12.0-15.5); Immature Grans % 0.7 %; Lymphocytes % 8.1; Mean Corp. HGB Concentration 31.6 g/dL (32.0-36.0); Mean Corpuscular Hemoglobin 33.4 pg (27.0-33.0); Mean Corpuscular Volume 105.9 fL (80-95); Mean Platelet Volume 9.8 fL (8.0-11.0); Monocytes % 5.8; Neutrophils % 83.4; Platelet Count 178 x1000/uL (130-400); RBC 3.23 m/cumm (4.00-5.20); White Blood Cell Count 6.77 k/cumm (4.4-10.8)
[2020-01-25 09:26] LABS: Diff Comment RBC Morph Reviewed
[2020-01-25 09:32] LABS: Macrocytosis 1+; Polychromasia Present
[2020-01-25 09:34] LABS: ALT 83 U/L (14-59); AST 57 U/L (15-37); Albumin 2.4 g/dL (3.4-5.0); Alkaline Phosphatase 505 U/L (46-116); Anion Gap 7.4 mmol/L (3-11); BUN 13 mg/dL (7-18); Bilirubin, Total 0.4 mg/dL (0.2-1.0); CO2 28.6 mmol/L (21.0-32.0); CREATININE 0.68 mg/dL (0.55-1.02); Calcium 8.3 mg/dL (8.5-10.1); Chloride 101 mmol/L (98-107); Glucose 151 mg/dL (74-106); Potassium 3.6 mmol/L (3.5-5.1); Sodium 137 mmol/L (136-145); Total Protein 6.1 g/dL (6.4-8.2)
[2020-01-28 13:05] LABS: CEA 626.4 ng/mL (See Note)
[2020-02-14] MEDS: Normal Saline Flush 10 ML SYR IVP (08:45)
[2020-02-14] MEDS: Heparin 500 UNITS/5 ML SYRINGE IV (08:45)
[2020-02-14 09:06] LABS: Absolute Monocyte Count 0.75 10^3/uL (0.1-0.8); Absolute Neutrophil Count 12.86 10^3/uL (1.2-6.7); Basophils % 0.1; Eosinophils % 1.2; HCT 33.5 % (36.0-46.0); HGB 10.9 g/dL (11.2-15.7); Immature Grans % 2.7; Lymphocytes % 3.4; MCH 32.3 pg (27.0-33.0); MCHC 32.5 % (32.0-36.0); MCV 99.4 fL (80-95); Monocytes % 5.1; Neutrophils % 87.5; Platelet Count 229 10^3/uL (130-400); RBC 3.37 10^6/uL (3.93-5.22); RDW-SD 54.5 fL
[2020-02-14 09:09] LABS: Absolute Basophil Count 0.01 10^3/uL (0.0-0.2); Absolute Eosinophil Count 0.18 10^3/uL (0.0-0.7)
[2020-02-14 09:19] LABS: ALT 101 U/L (14-59); AST 106 U/L (15-37); Albumin 2.2 g/dL (3.4-5.0); Alkaline Phosphatase 773 U/L (46-116); Anion Gap 10.4 mmol/L (3-11); BUN 13 mg/dL (7-18); Bilirubin, Total 1.3 mg/dL (0.2-1.0); CO2 29.6 mmol/L (21.0-32.0); CREATININE 0.78 mg/dL (0.55-1.02); Chloride 94 mmol/L (98-107); Glucose 126 mg/dL (74-106); Sodium 134 mmol/L (136-145); Total Protein 6.9 g/dL (6.4-8.2)
[2020-02-14 21:00] LABS: CEA 2130.7 ng/mL (See Note)
== END 2020-02-15 23:59 | disposition home or self-care (01) ==
LOC: INF 02:01
PROVIDERS: Nurse Practitioner Acute Care; PCP Family Medicine; Visit Provider Internal Medicine Hematology & Oncology
DX: C20 Malignant neoplasm of rectum (principal); Z45.2 Encounter for adjustment and management of vascular access device
CPT/HCPCS: 36591; 80053; 82378; 85025

== ENCOUNTER 2020-02-20 11:33 | Outpatient (CLI) | payer MEDICAID, SELFPAY ==
--- NOTE | 2020-02-20 10:45 | DI.RAD_ITS ---
EXAM: XR HUMERUS LT CLINICAL HISTORY: fu left humerus TECHNIQUE: COMPARISON: CR XR HUMERUS RT from 02/04/2020 XR HUMERUS LT from 02/08/2020 FINDINGS: Four views were obtained and show intramedullary levy transfixing mid humeral fracture which appears t o be a pathologic fracture. There appears to be increased bony resorption at the fracture site and m ildly increased angulation comparison with intraoperative films February 07. IMPRESSION:
--- NOTE | 2020-02-20 11:15 | DI.RAD_ITS ---
EXAM: XR HIP PELVIS ADULT BL CLINICAL HISTORY: hip pain TECHNIQUE: COMPARISON: CT CT ABDOMEN PELVIS W from 01/28/2020 FINDINGS: Three views were obtained. There is an IUD in the pelvic midline. There are slight bilateral SI anabel nt degenerative changes. The cartilaginous joint spaces of the hips may be slightly narrowed. There are mild marginal osteophytes of the acetabula bilaterally. Femoral heads appear intact. Soft tiss ue calcifications are seen bilaterally adjacent to greater trochanters of the femurs. There is a sharper lucency overlying the right iliac wing, clinical correlation is requested regardin g any possibility of a fracture of iliac. This is only visible on one view. IMPRESSION: Mild degenerative changes, question lucency of right iliac bone, fracture versus artifact, please cor relate regarding any history of trauma. Prior CT of 01/28/2020 showed no significant abnormality of the right iliac bone.
== END 2020-02-20 11:53 ==
PROVIDERS: PCP Family Medicine; Referring Provider Family Medicine; Visit Provider Student in an Organized Health Care Education/Training Program
DX: S42.302D Unspecified fracture of shaft of humerus, left arm, subsequent encounter for fracture with routine healing (principal); M16.0 Bilateral primary osteoarthritis of hip; Z97.5 Presence of (intrauterine) contraceptive device
CPT/HCPCS: 73521; 73060

== ENCOUNTER 2020-03-07 04:31 | Outpatient (RCR) | payer MEDICAID, SELFPAY ==
[2020-02-25] MEDS: Normal Saline Flush 10 ML SYR IVP (09:19)
[2020-02-25] MEDS: Heparin 500 UNITS/5 ML SYRINGE IV (09:19)
[2020-02-25 09:25] LABS: Abs Immature Grans 0.29 10^3/uL (0.0-0.06); Absolute Lymphocyte Count 0.78 10^3/uL (1.2-3.4); Basophils % 0.1; Eosinophils % 1.3; HCT 30.9 % (36.0-46.0); Immature Grans % 1.4; Lymphocytes % 3.8; MCH 32.1 pg (27.0-33.0); MCHC 32.4 % (32.0-36.0); MPV 11.4 fL (8.0-11.0); Monocytes % 4.5; Neutrophils % 88.9; Nucleated RBC 0 %; Platelet Count 264 10^3/uL (130-400); RBC 3.12 10^6/uL (3.93-5.22); RDW 16.2 % (11.7-14.6); RDW-SD 58.6 fL; WBC 20.48 10^3/uL (4.4-10.8)
[2020-02-25 09:28] LABS: Absolute Basophil Count 0.02 10^3/uL (0.0-0.2); Absolute Eosinophil Count 0.27 10^3/uL (0.0-0.7); Absolute Monocyte Count 0.92 10^3/uL (0.1-0.8); Absolute Neutrophil Count 18.21 10^3/uL (1.2-6.7)
[2020-02-25 09:46] LABS: ALT 107 U/L (14-59); AST 228 U/L (15-37); Albumin 1.9 g/dL (3.4-5.0); Anion Gap 10.3 mmol/L (3-11); BUN 19 mg/dL (7-18); Bilirubin, Total 3.2 mg/dL (0.2-1.0); CO2 25.7 mmol/L (21.0-32.0); CREATININE 0.84 mg/dL (0.55-1.02); Calcium 8.7 mg/dL (8.5-10.1); Chloride 100 mmol/L (98-107); Glucose 136 mg/dL (74-106); Potassium 3.3 mmol/L (3.5-5.1); Sodium 136 mmol/L (136-145); Total Protein 6.5 g/dL (6.4-8.2)
[2020-02-25 09:48] LABS: Alkaline Phosphatase 1035 U/L (46-116)
[2020-02-25 17:13] LABS: CEA 2571.8 ng/mL (See Note)
[2020-03-07] MEDS: Heparin 500 UNITS/5 ML SYRINGE IV (11:20)
[2020-03-07] MEDS: Normal Saline Flush 10 ML SYR IVP (11:20)
[2020-03-07 11:52] LABS: Abs Immature Grans 0.18 10^3/uL (0.0-0.06); Absolute Lymphocyte Count 0.51 10^3/uL (1.2-3.4); Basophils % 0.2; Eosinophils % 0.5; HCT 32.2 % (36.0-46.0); HGB 10.5 g/dL (11.2-15.7); Lymphocytes % 2.8; MCH 31.2 pg (27.0-33.0); MCHC 32.6 % (32.0-36.0); MCV 95.5 fL (80-95); MPV 12.5 fL (8.0-11.0); Monocytes % 2.6; Neutrophils % 92.9; Nucleated RBC 0 %; Platelet Count 166 10^3/uL (130-400); RBC 3.37 10^6/uL (3.93-5.22); RDW 17.7 % (11.7-14.6); RDW-SD 60.9 fL; WBC 18.31 10^3/uL (4.4-10.8)
[2020-03-07 11:53] LABS: Absolute Basophil Count 0.04 10^3/uL (0.0-0.2); Absolute Eosinophil Count 0.09 10^3/uL (0.0-0.7); Absolute Monocyte Count 0.48 10^3/uL (0.1-0.8); Absolute Neutrophil Count 17.01 10^3/uL (1.2-6.7)
[2020-03-07 12:14] LABS: ALT 70 U/L (14-59); AST 99 U/L (15-37); Anion Gap 14.6 mmol/L (3-11); BUN 33 mg/dL (7-18); Bilirubin, Total 4.7 mg/dL (0.2-1.0); CO2 25.4 mmol/L (21.0-32.0); CREATININE 1.18 mg/dL (0.55-1.02); Calcium 8.8 mg/dL (8.5-10.1); Chloride 91 mmol/L (98-107); Estimated GFR 46.72 (mL/min/1.73m2); Glucose 97 mg/dL (74-106); Sodium 131 mmol/L (136-145); Total Protein 6.3 g/dL (6.4-8.2)
[2020-03-07 12:17] LABS: Alkaline Phosphatase 1404 U/L (46-116)
[2020-03-10 11:30] LABS: CEA 2213.8 ng/mL (See Note)
== END 2020-03-17 23:59 | disposition home or self-care (01) ==
LOC: INF 04:31
PROVIDERS: PCP Family Medicine; Visit Provider Internal Medicine Hematology & Oncology
DX: C20 Malignant neoplasm of rectum (principal); Z45.2 Encounter for adjustment and management of vascular access device
CPT/HCPCS: 36415; 36591; 80053; 82378; 85025